=== PATIENT | male | born 1980 | race Caucasian/White ===

== ENCOUNTER → 2020-10-01 | Outpatient (CLI) | payer OTHER ==
[2020-10-01 19:20] LABS: HEMOGLOBIN 13.8 gm/dl (14.0-17.5); RED BLOOD COUNT 5.15 M/UL (4.20-5.50); WHITE BLOOD COUNT 5.3 K/UL (4.5-11.0)
[2020-10-01 19:38] LABS: BUN/CREATININE RATIO 15 (0-10)
[2020-10-03 07:11] LABS: HIV SCREEN 4TH GENERATION WRFX Non Reactive (Non Reactive)
== END ==
LOC: LAB 18:53
PROVIDERS: Nurse Practitioner Family
DX: R21 Rash and other nonspecific skin eruption (principal); R50.9 Fever, unspecified
CPT/HCPCS: 80053; 85025; 87040; 87206; 87389

== ENCOUNTER → 2021-10-29 | Outpatient (CLI) | payer OTHER | LOC: HEART 5 08:11 | DX: R07.9 Chest pain, unspecified (principal) | CPT/HCPCS: 78452; 93306; A9502; J2785 ==

== ENCOUNTER → 2022-02-28 | Outpatient (CLI) | payer OTHER | LOC: EXRD 10:11 | DX: M54.12 Radiculopathy, cervical region (principal) | CPT/HCPCS: 72040 ==